=== PATIENT | male | born 1940 | race Caucasian/White ===

== ENCOUNTER 2020-06-09 17:03 | Emergency (ER) | payer MEDICARE | END 2020-06-09 21:21 | disposition home or self-care (01) | LOC: ER1 17:03 | DX: N40.1 Benign prostatic hyperplasia with lower urinary tract symptoms (principal); R33.8 Other retention of urine; I48.91 Unspecified atrial fibrillation; Z79.899 Other long term (current) drug therapy; Z87.891 Personal history of nicotine dependence | CPT/HCPCS: 51702; 81001; 99283 ==

== ENCOUNTER 2020-06-10 18:49 | Emergency (ER) | payer MEDICARE | END 2020-06-10 20:43 | disposition home or self-care (01) | LOC: ER1 18:49 | DX: R33.9 Retention of urine, unspecified (principal); T83.038A Leakage of other urinary catheter, initial encounter; I10 Essential (primary) hypertension | CPT/HCPCS: 99283 ==

== ENCOUNTER 2020-06-11 02:46 | Emergency (ER) | payer MEDICARE | END 2020-06-11 03:25 | disposition home or self-care (01) | LOC: ER1 02:46 | DX: R33.9 Retention of urine, unspecified (principal); T83.038A Leakage of other urinary catheter, initial encounter; I48.91 Unspecified atrial fibrillation | CPT/HCPCS: 99283 ==

== ENCOUNTER 2020-06-20 16:47 | Emergency (ER) | payer MEDICARE ==
[2020-06-20 19:37] LABS: HEMOGLOBIN 15.2 gm/dl (14.0-17.5); RED BLOOD COUNT 4.58 M/UL (4.20-5.50); WHITE BLOOD COUNT 10.9 K/UL (4.5-11.0)
[2020-06-20 19:53] LABS: BUN/CREATININE RATIO 21 (0-10)
== END 2020-06-21 01:20 | disposition short-term general hospital (02) ==
LOC: ER1 16:47
PROVIDERS: Physician Assistant
DX: N32.89 Other specified disorders of bladder (principal); R31.0 Gross hematuria; I10 Essential (primary) hypertension; I48.91 Unspecified atrial fibrillation
CPT/HCPCS: 51702; 80053; 81001; 85025; 87077; 87086; 87186; 93005; 99285

== ENCOUNTER 2020-09-20 16:19 | Emergency (ER) | payer MEDICARE ==
[2020-09-20 17:55] LABS: HEMOGLOBIN 13.3 gm/dl (14.0-17.5); RED BLOOD COUNT 4.26 M/UL (4.20-5.50)
[2020-09-20 18:13] LABS: BUN/CREATININE RATIO 24 (0-10)
[2020-09-20] MEDS ORDERED: OMNICEF 300 MG300 MG PO ×2 (20:11→20:17)
== END 2020-09-21 01:40 | disposition short-term general hospital (02) ==
LOC: ER1 16:19
PROVIDERS: Physician Assistant
DX: R33.9 Retention of urine, unspecified (principal); I48.91 Unspecified atrial fibrillation; I10 Essential (primary) hypertension; Z79.899 Other long term (current) drug therapy; Z20.822 Contact with and (suspected) exposure to COVID-19
CPT/HCPCS: 51702; 80048; 81001; 85025; 87077; 87086; 87186; 99284; U0002